=== PATIENT | female | born 1985 | race Caucasian/White ===

== ENCOUNTER 2021-06-04 06:59 | Emergency (ER) | payer SELFPAY ==
[2021-06-04] MEDS ORDERED: Ketorolac Tromethamine 60 MG/2 ML VIAL ONE (07:42)
== END 2021-06-04 08:00 | disposition home or self-care (01) ==
LOC: NAV ERS 06:59
DX: S29.012A Strain of muscle and tendon of back wall of thorax, initial encounter (principal); X58.XXXA Exposure to other specified factors, initial encounter
CPT/HCPCS: 96372; 99283; J1885